=== PATIENT | female | born 1975 | race African-American/Black ===

== ENCOUNTER 2024-04-02 08:01 | Outpatient (CLI) | payer OTHER | END 2024-04-02 08:02 | disposition home or self-care (01) | LOC: SCSRAD 08:01 | PROVIDERS: ATTEND Student in an Organized Health Care Education/Training Program | DX: M54.6 Pain in thoracic spine (principal); M54.2 Cervicalgia; M47.812 Spondylosis without myelopathy or radiculopathy, cervical region; M50.323 Other cervical disc degeneration at C6-C7 level; M46.02 Spinal enthesopathy, cervical region | CPT/HCPCS: 72040; 72072 ==